=== PATIENT | female | born 1950 | race Caucasian/White ===

== ENCOUNTER → 2017-08-22 | Outpatient (CLI) | payer MEDICARE, BC ==
--- NOTE | 2017-08-26 10:35 | MM ---
Reason for exam: screening (asymptomatic). Last mammogram was performed 1 year and 7 months ago. History: Patient is postmenopausal and is nulliparous. Took estrogen for 31 years beginning at age 26. Physical Findings: A clinical breast exam by your physician is recommended on an annual basis and results should be correlated with mammographic findings. MG 3D Screening Mammo W/Cad Bilateral CC and MLO view(s) were taken. Prior study comparison: January 27, 2016, bilateral MG 3d screening mammo w/cad. January 24, 2015, bilateral MG screening mammo w CAD. The breast tissue is heterogeneously dense. This may lower the sensitivity of mammography. Benign calcifications. There is no discrete abnormality. No significant changes when compared with prior studies. ASSESSMENT: Benign, BI-RAD 2 RECOMMENDATION: Routine screening mammogram of both breasts in 1 year.
== END ==
LOC: RADMAMWWP 11:26
PROVIDERS: ATTEND Family Medicine
DX: Z12.31 Encounter for screening mammogram for malignant neoplasm of breast (principal)
CPT/HCPCS: 77063; G0202

== ENCOUNTER → 2017-08-22 | Outpatient (CLI) | payer MEDICARE, BC ==
[2017-08-22 12:48] LABS: Calcium 9.3 mg/dL (8.4-10.2); Potassium 3.1 mmol/L (3.5-5.1)
== END | disposition home or self-care (01) ==
LOC: LABWHC1 11:54
PROVIDERS: ATTEND Nurse Practitioner Family
DX: N18.3 Chronic kidney disease, stage 3 (moderate) (principal)
CPT/HCPCS: 36415; 80048

== ENCOUNTER → 2017-09-05 | Outpatient (CLI) | payer MEDICARE, BC | END | disposition home or self-care (01) | LOC: LABWHC1 11:13 | PROVIDERS: ATTEND Internal Medicine Endocrinology, Diabetes & Metabolism | DX: E03.8 Other specified hypothyroidism (principal); E55.9 Vitamin D deficiency, unspecified; N18.3 Chronic kidney disease, stage 3 (moderate); D63.1 Anemia in chronic kidney disease; R80.9 Proteinuria, unspecified; M10.9 Gout, unspecified | CPT/HCPCS: 36415; 84443 ==

== ENCOUNTER → 2017-12-30 | Outpatient (CLI) | payer MEDICARE, BC ==
[2017-12-30 12:32] LABS: Phosphorus 3.7 mg/dL (2.5-4.5); Potassium 4.1 mmol/L (3.5-5.1); Uric Acid 6.7 mg/dL (3.7-7.4)
[2017-12-30 12:34] LABS: Appearance,Urine Clear (Clear); Bilirubin,Urine Negative (Negative); Blood,Urine Negative (Negative); Color,Urine Yellow; Glucose,Urine (UA) Negative (Negative); Ketones,Urine Negative (Negative); Leukocyte Esterase,Urine Negative (Negative); Nitrite,Urine Negative (Negative); PH, Urine 6.5 (5.0-8.0); Protein,Urine Negative (Negative); Specific Gravity,Urine 1.009 (1.001-1.035); Urobilinogen,Urine <2.0 mg/dL (<2.0)
[2017-12-30 13:07] LABS: Basophils # (A) 0.1 k/uL (0-0.2); Basophils % (A) 1 %; Eosinophils # (A) 0.2 k/uL (0-0.7); Eosinophils % (A) 2 %; HCT 41.3 % (34.0-46.0); HGB 13.1 gm/dL (11.4-16.0); Lymphocytes # (A) 0.9 k/uL (1.0-4.8); Lymphocytes % (A) 14 %; MCH 29.7 pg (25.0-35.0); MCHC 31.7 g/dL (31.0-37.0); MCV 93.9 fL (80.0-100.0); Mean Platelet Volume 6.9; Monocytes # (A) 0.5 k/uL (0-1.0); Monocytes % (A) 7 %; Neutrophils % (A) 75 %; Platelet Count 353 k/uL (150-450); RDW 12.8 % (11.5-15.5); WBC 6.7 k/uL (3.8-10.6)
[2017-12-30 19:04] LABS: Iron Saturation 15.76 (12.00-45.00)
[2017-12-30 19:12] LABS: Vitamin D 25 Hydroxy 23.2 ng/mL (30.0-100.0)
[2017-12-30 21:31] LABS: Parathyroid Hormone Intact 84.8 pg/mL (14.0-72.0)
== END | disposition home or self-care (01) ==
LOC: LABWHC1 11:35
PROVIDERS: ATTEND Nurse Practitioner Family
DX: D64.9 Anemia, unspecified (principal); E55.9 Vitamin D deficiency, unspecified; E21.3 Hyperparathyroidism, unspecified; M10.9 Gout, unspecified; N18.3 Chronic kidney disease, stage 3 (moderate); R80.9 Proteinuria, unspecified
CPT/HCPCS: 36415; 80048; 81003; 82306; 82728; 83540; 83550; 83735; 83970; 84100; 84550; 85025

== ENCOUNTER → 2018-10-13 | Outpatient (CLI) | payer MEDICARE, BC ==
[2018-10-13 11:09] LABS: INR 2.7 (<1.2); Prothrombin Time 24.1 sec (9.0-12.0)
== END | disposition home or self-care (01) ==
LOC: LABWHC1 10:23
PROVIDERS: ATTEND Family Medicine
DX: I82.409 Acute embolism and thrombosis of unspecified deep veins of unspecified lower extremity (principal)
CPT/HCPCS: 36415; 85610

== ENCOUNTER → 2018-11-12 | Outpatient (CLI) | payer MEDICARE, BC ==
--- NOTE | 2018-11-14 09:33 | MM ---
Reason for exam: screening (asymptomatic). Last mammogram was performed 1 year and 3 months ago. History: Patient is postmenopausal and is nulliparous. Took estrogen for 31 years beginning at age 26. Physical Findings: A clinical breast exam by your physician is recommended on an annual basis and results should be correlated with mammographic findings. MG 3D Screening Mammo W/Cad Bilateral CC and MLO view(s) were taken. Prior study comparison: August 22, 2017, bilateral MG 3d screening mammo w/cad. January 27, 2016, bilateral MG 3d screening mammo w/cad. There are scattered fibroglandular densities. No significant changes when compared with prior studies. ASSESSMENT: Negative, BI-RAD 1 RECOMMENDATION: Routine screening mammogram of both breasts in 1 year.
== END | disposition home or self-care (01) ==
LOC: RADMAMWWP 11:00
PROVIDERS: ATTEND Family Medicine
DX: Z12.31 Encounter for screening mammogram for malignant neoplasm of breast (principal)
CPT/HCPCS: 77063; 77067

== ENCOUNTER → 2018-12-10 | Outpatient (CLI) | payer MEDICARE, BC ==
[2018-12-10 18:15] LABS: Anion Gap 10.4 mmol/L (4.00-12.00); Calcium 9.3 mg/dL (8.7-10.3); Carbon Dioxide 29.6 mmol/L (21.6-31.8); Potassium 3.4 mmol/L (3.5-5.5)
== END | disposition home or self-care (01) ==
LOC: LABWHC1 13:03
PROVIDERS: ATTEND Internal Medicine Nephrology
DX: I82.409 Acute embolism and thrombosis of unspecified deep veins of unspecified lower extremity (principal); E87.1 Hypo-osmolality and hyponatremia
CPT/HCPCS: 36415; 80048

== ENCOUNTER → 2018-12-10 | Outpatient (CLI) | payer MEDICARE, BC ==
--- NOTE | 2018-12-10 14:15 | MR ---
MR right hip HISTORY: Idiopathic aseptic necrosis Multiplanar multisequence imaging through the pelvis, small [id number] images through the right hi p Correlation to prior MR hips dated 11/08/2015 There is been interval left hip arthroplasty, susceptibility artifact is noted due to patient's left hip prosthesis. Postop changes are noted to the lumbar spine as on prior exam, there is a spinal curv ature. Right hip show similar findings to prior exam, hypertrophic changes present with joint space l oss, grade 3 to grade IV chondromalacia, subchondral signal abnormalities. There has been interval pr ogression in the probable reactive marrow signal change in the right ilium and acetabular roof with a ssociated geode compared to prior. Some serpiginous low signal in the femoral head subchondral locati on is similar. No evident femoral head collapse. There is a small hip joint effusion on the right. Fluid signal again noted at the origins of the hamstring musculature compatible with are partial tear s or tendinosis. Mild fluid signal at the greater trochanter, possible partial tear gluteus medius te ndon insertional tear or tendinosis. Changes of probable fecal stasis again noted within the pelvis. Urinary bladder unremarkable as seen. No pelvic adenopathy. 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 Previous changes of avascular right femor al head again noted. Interval surgery as described. Additional findings above.
== END ==
LOC: RADMRIMAIN 11:30
PROVIDERS: ATTEND Orthopaedic Surgery Sports Medicine
DX: M16.11 Unilateral primary osteoarthritis, right hip (principal)

== ENCOUNTER → 2018-12-29 | Outpatient (CLI) | payer MEDICARE, BC ==
[2018-12-30 03:13] LABS: Anion Gap 9.2 mmol/L (4.00-12.00); Calcium 8.8 mg/dL (8.7-10.3); Carbon Dioxide 26.8 mmol/L (21.6-31.8); Potassium 3.4 mmol/L (3.5-5.5)
== END ==
LOC: LABWHC1 15:00
PROVIDERS: ATTEND Internal Medicine Nephrology
DX: N18.3 Chronic kidney disease, stage 3 (moderate) (principal)
CPT/HCPCS: 36415; 80048

== ENCOUNTER → 2019-03-23 | Outpatient (CLI) | payer MEDICARE, BC ==
[2019-03-23 16:35] LABS: Anion Gap 7.6 mmol/L (4.00-12.00); Calcium 8.7 mg/dL (8.7-10.3); Carbon Dioxide 23.4 mmol/L (21.6-31.8); Potassium 4.4 mmol/L (3.5-5.5)
== END ==
LOC: LABWHC1 10:14
PROVIDERS: ATTEND Nurse Practitioner Family
DX: N17.9 Acute kidney failure, unspecified (principal)
CPT/HCPCS: 36415; 80048

== ENCOUNTER → 2019-12-15 | Outpatient (CLI) | payer MEDICARE, BC ==
--- NOTE | 2019-12-16 10:59 | MM ---
Reason for exam: screening (asymptomatic). Last mammogram was performed 1 year and 1 month ago. History: Patient is postmenopausal and is nulliparous. Took estrogen for 31 years beginning at age 26. Physical Findings: A clinical breast exam by your physician is recommended on an annual basis and results should be correlated with mammographic findings. MG 3D Screening Mammo W/Cad Bilateral CC and MLO view(s) were taken. Prior study comparison: November 12, 2018, bilateral MG 3d screening mammo w/cad. August 22, 2017, bilateral MG 3d screening mammo w/cad. The breast tissue is heterogeneously dense. This may lower the sensitivity of mammography. Benign appearing bilateral calcifications. No suspicious abnormality. No significant changes when compared with prior studies. ASSESSMENT: Benign, BI-RAD 2 RECOMMENDATION: Routine screening mammogram of both breasts in 1 year.
== END | disposition home or self-care (01) ==
LOC: RADMAMWWP 09:43
PROVIDERS: ATTEND Family Medicine
DX: Z12.31 Encounter for screening mammogram for malignant neoplasm of breast (principal)
CPT/HCPCS: 77063; 77067

== ENCOUNTER → 2020-01-21 | Outpatient (CLI) | payer MEDICARE, BC | END | disposition home or self-care (01) | LOC: LABWHC1 11:19 | PROVIDERS: ATTEND Internal Medicine Endocrinology, Diabetes & Metabolism | DX: E03.8 Other specified hypothyroidism (principal) | CPT/HCPCS: 36415; 84443 ==

== ENCOUNTER → 2020-04-20 | Outpatient (CLI) | payer MEDICARE, BC ==
[2020-04-20 13:06] LABS: Appearance,Urine Clear (Clear); Bilirubin,Urine Negative (Negative); Blood,Urine Negative (Negative); Color,Urine Yellow; Glucose,Urine (UA) Negative (Negative); Ketones,Urine Negative (Negative); Leukocyte Esterase,Urine Negative (Negative); Nitrite,Urine Negative (Negative); Protein,Urine Trace (Negative); Specific Gravity,Urine 1.014 (1.001-1.035); Urobilinogen,Urine <2.0 mg/dL (<2.0)
[2020-04-20 13:07] LABS: HCT 37.2 % (34.0-46.0); HGB 12.1 gm/dL (11.4-16.0); MCH 30.1 pg (25.0-35.0); MCHC 32.4 g/dL (31.0-37.0); MCV 92.9 fL (80.0-100.0); Mean Platelet Volume 7.3; Platelet Count 286 k/uL (150-450); WBC 6.7 k/uL (3.8-10.6)
[2020-04-20 13:23] LABS: Protein/Creatinine Ratio,Urine 0.345
[2020-04-20 19:33] LABS: % Iron Saturation 16.45 (12.00-45.00); African American GFR (CKD) 59.3 (60.0-200.0); Anion Gap 10.2 mmol/L (4.00-12.00); BUN/Creat Ratio 19.09 Ratio (12.00-20.00); Calcium 9.3 mg/dL (8.7-10.3); Carbon Dioxide 24.8 mmol/L (21.6-31.8); Magnesium 2.1 mg/dL (1.5-2.4); Non-African American GFR(CKD) 51.2 (60.0-200.0); Potassium 2.8 mmol/L (3.5-5.5)
[2020-04-20 19:42] LABS: Ferritin 36.1 ng/mL (10.0-291.0)
== END | disposition home or self-care (01) ==
LOC: LABWHC1 11:57
PROVIDERS: ATTEND Internal Medicine Nephrology
DX: N18.3 Chronic kidney disease, stage 3 (moderate) (principal); N39.0 Urinary tract infection, site not specified; D63.1 Anemia in chronic kidney disease; R80.9 Proteinuria, unspecified; N25.81 Secondary hyperparathyroidism of renal origin; E55.9 Vitamin D deficiency, unspecified
CPT/HCPCS: 36415; 80048; 81003; 82306; 82570; 82728; 83540; 83550; 83735; 83970; 84100; 84156; 84550; 85027

== ENCOUNTER → 2020-04-25 | Outpatient (CLI) | payer MEDICARE, BC ==
[2020-04-25 21:32] LABS: African American GFR (CKD) 66.6 (60.0-200.0); Anion Gap 8.1 mmol/L (4.00-12.00); Calcium 8.9 mg/dL (8.7-10.3); Carbon Dioxide 24.9 mmol/L (21.6-31.8); Non-African American GFR(CKD) 57.4 (60.0-200.0)
== END | disposition home or self-care (01) ==
LOC: LABWHC1 13:44
PROVIDERS: ATTEND Nurse Practitioner Family
DX: N18.3 Chronic kidney disease, stage 3 (moderate) (principal)
CPT/HCPCS: 36415; 80048

== ENCOUNTER 2020-04-29 21:14 | Emergency (ER) | payer MEDICARE, BC ==
[2020-04-29 21:24] VITALS: RESP 18; TEMP 98.5
[2020-04-29] MEDS ORDERED: HYDROmorphone 0.5 MG/0.5 ML SYRINGE IVP STA (22:42)
[2020-04-29 22:51] LABS: Appearance,Urine Clear (Clear); Bilirubin,Urine Negative (Negative); Blood,Urine Negative (Negative); Color,Urine Colorless; Glucose,Urine (UA) Negative (Negative); Ketones,Urine Negative (Negative); Leukocyte Esterase,Urine Negative (Negative); Nitrite,Urine Negative (Negative); Protein,Urine Negative (Negative); Specific Gravity,Urine 1.004 (1.001-1.035); Urobilinogen,Urine <2.0 mg/dL (<2.0)
[2020-04-29 22:53] LABS: Basophils % (A) 1 %; Eosinophils # (A) 0.2 k/uL (0-0.7); Eosinophils % (A) 3 %; HCT 37.7 % (34.0-46.0); HGB 11.8 gm/dL (11.4-16.0); Lymphocytes # (A) 0.8 k/uL (1.0-4.8); Lymphocytes % (A) 12 %; MCH 30.1 pg (25.0-35.0); MCHC 31.3 g/dL (31.0-37.0); Mean Platelet Volume 7.4; Monocytes # (A) 0.3 k/uL (0-1.0); Monocytes % (A) 5 %; Neutrophils # (A) 4.8 k/uL (1.3-7.7); Neutrophils % (A) 77 %; Platelet Count 292 k/uL (150-450); RBC 3.93 m/uL (3.80-5.40); RDW 13.4 % (11.5-15.5); WBC 6.2 k/uL (3.8-10.6)
[2020-04-29 23:09] LABS: Albumin 3.6 g/dL (3.5-5.0); Calcium 9.2 mg/dL (8.4-10.2); Magnesium 2.3 mg/dL (1.6-2.3); Phosphorus 3.4 mg/dL (2.5-4.5); Potassium 5.5 mmol/L (3.5-5.1); Total Bilirubin 0.2 mg/dL (0.2-1.3); Total Protein 6.6 g/dL (6.3-8.2)
--- NOTE | 2020-04-29 23:29 | CT ---
EXAMINATION TYPE: CT brain antoineine wo con DATE OF EXAM: 04/29/2020 COMPARISON: 11/08/2015 HISTORY: headache Neck pain CT DLP: 1242.7 mGycm Automated exposure control for dose reduction was used. Ventricles and sulci appear normal. There is no mass effect nor midline shift. There is no sign of in tracranial hemorrhage. The calvarium is intact. There is no evidence of cerebral edema. There is multilevel anterior fusion surgery in the cervical spine from C4 to C7. There is disc space narrowing and spurring of the endplates. Facet joints are intact. There is a nondisplaced fracture of the lateral mass of the C2 vertebra on the right side. The odonto id process appears normal. C1 vertebra probably has a small chip fracture of the inferior articular f acet on the right side. IMPRESSION: Negative CT scan of the brain. No change. Fracture of the lateral mass of C2 vertebra on the right side without significant displacement. Age o f this fracture is not clear. This could be an acute fracture.
[2020-04-29 23:53] VITALS: BP 140/82; PULSE 69
[2020-04-30] MEDS ORDERED: HYDROmorphone 0.5 MG/0.5 ML SYRINGE IVP STA (00:34)
--- NOTE | 2020-04-30 00:54 | ED ---
General Adult HPI - General Chief complaint: Recheck/Abnormal Lab/Rx Stated complaint: Abnormal Labs Time Seen by Provider: 04/29/20 22:10 Source: patient, RN notes reviewed, old records reviewed Mode of arrival: wheelchair Limitations: no limitations - History of Present Illness Initial comments: 69-year-old female patient presents to ED for evaluation of headache, neck pain. Patient reports that for the last week or so she has had a headache as well as neck pain. Patient reports that she had a prior ankle fusion done 2003. Denies any recent falls or trauma. Patient also reports that she has chronic lower extremity pain for she has a pain pump. Patient reports that this has been slightly worse than normal. She states that she in the past that history with her sodium and her potassium. She believes that they may be low. She denies any chest pain or shortness of breath. Denies any other complaints. Systemic: Pt denies fatigue, fever/chills, rash. Pt denies weakness, night sweats, weight loss. Neuro: Pt denies visual disturbances, syncope or pre-syncope. HEENT: Pt denies ocular discharge or irritation, otalgia, rhinorrhea, pharyngitis or notable lymphadenopathy. Cardiopulmonary: Pt denies chest pain, SOB, heart palpitations, dyspnea on exertion. Abdominal/GI: Pt denies abdominal pain, n/v/d. : Pt denies dysuria, burning w/ urination, frequency/urgency. Denies new onset urinary or bowel incontinence. MSK: Pt denies myalgia, loss of strength or function in extremities. Neuro: Pt denies new onset weakness, paresthesias. - Related Data Allergies Allergy/AdvReac Type Severity Reaction Status Date / Time cephalexin [From Keflex] Allergy Rash/Hives Verified 04/29/20 21:27 Iodine and Iodide Containing Allergy Rapid Verified 04/29/20 21:27 Produc Heart Rate levofloxacin [From Levaquin] Allergy Rash/Hives Verified 04/29/20 21:27 meperidine [From Demerol] Allergy Vomiting Verified 04/29/20 21:24 morphine Allergy Nausea & Verified 04/29/20 21:27 Vomiting neomycin Allergy Rash/Hives Verified 04/29/20 21:27 Penicillins Allergy Rash/Hives Verified 04/29/20 21:27 pentazocine [From Talwin] Allergy Rash/Hives Verified 04/29/20 21:25 prochlorperazine Allergy Rapid Verified 04/29/20 21:25 [From Compazine] Heart Rate Sulfa (Sulfonamide Allergy Rash/Hives Verified 04/29/20 21:27 Antibiotics) vancomycin Allergy Rash/Hives Verified 04/29/20 21:27 Review of Systems ROS Statement: Those systems with pertinent positive or pertinent negative responses have been documented in the HPI. ROS Other: All systems not noted in ROS Statement are negative. Past Medical History Past Medical History: COPD, Deep Vein Thrombosis (DVT), Thyroid Disorder Additional Past Medical History / Comment(s): angina, kidney disorder History of Any Multi-Drug Resistant Organisms: None Reported Past Surgical History: Appendectomy, Cholecystectomy, Orthopedic Surgery Additional Past Surgical History / Comment(s): RSD in legs, pain pump, bowel obstruction, cervical fusion c5-6 Smoking Status: Former smoker Past Alcohol Use History: None Reported Past Drug Use History: None Reported General Exam - General Exam Comments Initial Comments: Constitutional: NAD, AOX3, Pt has pleasant affect. HEENT: NC/AT, trachea midline, neck supple. External ears appear normal, without discharge. Mucous membranes moist. Eyes PERRLA, EOM intact. There is no scleral icterus. No pallor noted. Cardiopulmonary: RRR, no murmurs, rubs or gallops, no JVD noted. Lungs CTAB in anterior and posterior lindsay. No peripheral edema. Abdominal exam: Abdomen soft and non-distended. Abdomen non-tender to palpation in all 4 quadrants. Bowel sounds active in LLQ. No hepatosplenomegaly. No ecchymosis Neuro: CN II-XII intact. No raccon eyes, no crowder sign. NIH 0. Cervical spine discomfort. MSK: Full active ROM in upper and lower extremities, 5/5 stregnth. Limitations: no limitations Course Vital Signs 04/29/20 04/29/20 04/29/20 21:16 22:51 23:48 Temperature 98.5 F Pulse Rate 78 67 69 Respiratory 18 18 18 Rate Blood Pressure 124/74 116/66 140/82 O2 Sat by Pulse 97 97 96 Oximetry Medical Decision Making - Medical Decision Making 69-year-old female patient presents to ED for evaluation of headache, neck pain. Patient reports that for the last week or so she has had a headache as well as neck pain. Patient reports that she had a prior ankle fusion done 2003. Denies any recent falls or trauma. Patient also reports that she has chronic lower extremity pain for she has a pain pump. Patient reports that this has been slightly worse than normal. She states that she in the past that history with her sodium and her potassium. She believes that they may be low. She denies any chest pain or shortness of breath. Denies any other complaints. Patient vital signs are stable, afebrile. Physical exam displayed intact neurologically exam. Cervical spine discomfort. CT brain and C-spine displayed negative CAT scan of the brain. Fracture of the lateral mass of C2 vertebrae in the right side without significant displacement. Laboratory investigations are obtained, mildly elevated potassium of 5.5. Troponin negative. UA negative. EKG nonischemic. Patient placed in a hard cervical collar and will be transferred to [facility]. Case discussed and pt seen by Dr. Guevara. - Lab Data Result diagrams: 04/29/20 22:25 04/29/20 22:25 Lab Results 04/29/20 04/29/20 04/29/20 Range/Units 22:25 22:25 22:25 WBC 6.2 (3.8-10.6) k/uL RBC 3.93 (3.80-5.40) m/uL Hgb 11.8 (11.4-16.0) gm/dL Hct 37.7 (34.0-46.0) % MCV 96.0 (80.0-100.0) fL MCH 30.1 (25.0-35.0) pg MCHC 31.3 (31.0-37.0) g/dL RDW 13.4 (11.5-15.5) % Plt Count 292 (150-450) k/uL Neutrophils % 77 % Lymphocytes % 12 % Monocytes % 5 % Eosinophils % 3 % Basophils % 1 % Neutrophils # 4.8 (1.3-7.7) k/uL Lymphocytes # 0.8 L (1.0-4.8) k/uL Monocytes # 0.3 (0-1.0) k/uL Eosinophils # 0.2 (0-0.7) k/uL Basophils # 0.0 (0-0.2) k/uL Sodium 136 L (137-145) mmol/L Potassium 5.5 H (3.5-5.1) mmol/L Chloride 106 (98-107) mmol/L Carbon Dioxide 25 (22-30) mmol/L Anion Gap 5 mmol/L BUN 17 (7-17) mg/dL Creatinine 0.96 (0.52-1.04) mg/dL Est GFR (CKD-EPI)AfAm 70 (>60 ml/min/1.73 sqM) Est GFR (CKD-EPI)NonAf 61 (>60 ml/min/1.73 sqM) Glucose 78 (74-99) mg/dL Calcium 9.2 (8.4-10.2) mg/dL Phosphorus 3.4 (2.5-4.5) mg/dL Magnesium 2.3 (1.6-2.3) mg/dL Total Bilirubin 0.2 (0.2-1.3) mg/dL AST 26 (14-36) U/L ALT 26 (4-34) U/L Alkaline Phosphatase 68 (38-126) U/L Troponin I (0.000-0.034) ng/mL Total Protein 6.6 (6.3-8.2) g/dL Albumin 3.6 (3.5-5.0) g/dL Urine Color Colorless Urine Appearance Clear (Clear) Urine pH 6.0 (5.0-8.0) Ur Specific [place] 1.004 (1.001-1.035) Urine Protein Negative (Negative) Urine Glucose (UA) Negative (Negative) Urine Ketones Negative (Negative) Urine Blood Negative (Negative) Urine Nitrite Negative (Negative) Urine Bilirubin Negative (Negative) Urine Urobilinogen <2.0 (<2.0) mg/dL Ur Leukocyte Esterase Negative (Negative) 04/29/20 Range/Units 22:25 WBC (3.8-10.6) k/uL RBC (3.80-5.40) m/uL Hgb (11.4-16.0) gm/dL Hct (34.0-46.0) % MCV (80.0-100.0) fL MCH (25.0-35.0) pg MCHC (31.0-37.0) g/dL RDW (11.5-15.5) % Plt Count (150-450) k/uL Neutrophils % % Lymphocytes % % Monocytes % % Eosinophils % % Basophils % % Neutrophils # (1.3-7.7) k/uL Lymphocytes # (1.0-4.8) k/uL Monocytes # (0-1.0) k/uL Eosinophils # (0-0.7) k/uL Basophils # (0-0.2) k/uL Sodium (137-145) mmol/L Potassium (3.5-5.1) mmol/L Chloride (98-107) mmol/L Carbon Dioxide (22-30) mmol/L Anion Gap mmol/L BUN (7-17) mg/dL Creatinine (0.52-1.04) mg/dL Est GFR (CKD-EPI)AfAm (>60 ml/min/1.73 sqM) Est GFR (CKD-EPI)NonAf (>60 ml/min/1.73 sqM) Glucose (74-99) mg/dL Calcium (8.4-10.2) mg/dL Phosphorus (2.5-4.5) mg/dL Magnesium (1.6-2.3) mg/dL Total Bilirubin (0.2-1.3) mg/dL AST (14-36) U/L ALT (4-34) U/L Alkaline Phosphatase (38-126) U/L Troponin I <0.012 (0.000-0.034) ng/mL Total Protein (6.3-8.2) g/dL Albumin (3.5-5.0) g/dL Urine Color Urine Appearance (Clear) Urine pH (5.0-8.0) Ur Specific [place] (1.001-1.035) Urine Protein (Negative) Urine Glucose (UA) (Negative) Urine Ketones (Negative) Urine Blood (Negative) Urine Nitrite (Negative) Urine Bilirubin (Negative) Urine Urobilinogen (<2.0) mg/dL Ur Leukocyte Esterase (Negative) - EKG Data -: EKG Interpreted by Me (and Dr. Guevara ) EKG Comments: Ventricular 58, through until 118, QRS 72, QT/QTC 378/71. Sinus bradycardia, low voltage QRS, Borderling EKG Disposition Clinical Impression: C2 cervical fracture Disposition: OTHER INSTITUTION NOT DEFINED Condition: Serious Is patient prescribed a controlled substance at d/c from ED?: No Referrals: Lynnette Mayer MD [Primary Care Provider] - 1-2 days - Out of Hospital Transfer - Req. Specs Out of Hospital Transfer - Requested Specifics: Other Emergency Center ([facility])
== END 2020-04-30 00:43 | disposition other institution (70) ==
LOC: EC 21:14
DX: S12.100A Unspecified displaced fracture of second cervical vertebra, initial encounter for closed fracture (principal); G89.29 Other chronic pain; M79.606 Pain in leg, unspecified; E87.5 Hyperkalemia; Z88.1 Allergy status to other antibiotic agents; Z88.0 Allergy status to penicillin; Z88.2 Allergy status to sulfonamides; Z88.5 Allergy status to narcotic agent; Z88.8 Allergy status to other drugs, medicaments and biological substances; Z91.048 Other nonmedicinal substance allergy status; Z87.891 Personal history of nicotine dependence; Z86.718 Personal history of other venous thrombosis and embolism; Z98.1 Arthrodesis status
CPT/HCPCS: 36415; 93005; 80053; 83735; 84100; 84484; 85025; 81003; 72125; 70450; 99285; 96374; 96376; J1170 ×2

== ENCOUNTER → 2020-05-04 | Outpatient (CLI) | payer MEDICARE, BC ==
--- NOTE | 2020-05-05 07:08 | MR ---
EXAMINATION TYPE: MR brain wo con DATE OF EXAM: 05/04/2020 COMPARISON: CT brain April 29, 2020. HISTORY: Neck pain, numbness rt side, ALVAREZ, passing out TECHNIQUE: Multiplanar, multisequence imaging of the brain and brainstem is performed without IV cont rast. FINDINGS: Diffusion weighted images demonstrate no evidence of a recent infarct or other diffusion abnormality. There is no worrisome extra-axial fluid collection. There is mild ventricular and sulcal prominence. There are scattered foci of T2 hyperintensity seen throughout the superficial deep and periventricula r white matter. T2 Star weighted images show no suspicious intraparenchymal blood product. Midline structures demonstrate normal morphology. Low T1 signal involving the and C2 vertebra corresp onds to diffuse sclerosis presumed on the basis of degenerative change. Possible old healed fracture injury noted on corresponding CT with asymmetric C1-C2 right-sided narrowing and sclerosis on coronal imaging. Normal vascular flow voids are present. Mild mucosal thickening involving the ethmoid sinu ses bilaterally. Globes are intact.. IMPRESSION: Mild diffuse cerebral atrophy and mild nonspecific white matter changes could be on the b asis of product of chronic small vessel ischemic change in patient of this age and/or altered vascula r mechanics related to product of migraine headaches.
--- NOTE | 2020-05-05 12:32 | MR ---
EXAMINATION TYPE: MR cervical spine wo/w con DATE OF EXAM: 05/05/2020 COMPARISON: Plain film 04/29/2020 HISTORY: Neck pain, numbness rt side, ALVAREZ, passing out, hx fusion 2013 TECHNIQUE: Multiplanar, multisequence images of the cervical spine were acquired utilizing 7 mL intravenous Gada vist gadolinium contrast. Diffusion weighted imaging was performed. C2-C3: No evidence for degenerative disc disease. No disc bulge/herniation or protrusion. No Canal stenosis. Foramina are patent bilaterally. C3-C4: Posterior extension of endplate disc complex causes anterior mass effect on the thecal sac and may contact the anterior cervical cord. Uncovertebral joint hypertrophy and facet arthropathy result s in some left-sided foraminal encroachment. C4-C5: There is foraminal encroachment present bilaterally due to uncovertebral joint hypertrophy and facet arthropathy. Right-sided laminectomy is present. No evident disc herniation. C5-C6: No evident disc herniation. There is some mild left-sided foraminal encroachment, uncovertebra l joint hypertrophy C6-C7: Bilateral foraminal encroachment is present. There is some minimal posterior broad-based disc bulge. C7-T1: There is some encroachment. Minimal posterior disc bulge causes mild anterior mass effect on t he thecal sac. Patient with known lateral mass fracture of C2 on the right is not included entirely on the current e xam on the axial images. Cervical vertebral bodies show preserved height and stable alignment. Patien t shows posterior fusion changes at C4-C5, C5-6, C6-7. Susceptibility artifact is present due to corby ent's hardware. There is multilevel facet arthropathy. Cervical cord signal is normal. There is no si gnificant central canal stenosis. No abnormal enhancement following contrast administration. IMPRESSION: Known C2 fracture. Postop changes. Degenerative disc disease. Multilevel foraminal encroachment.
== END | disposition home or self-care (01) ==
LOC: RADMRIMAIN 16:01
PROVIDERS: ATTEND Family Medicine
DX: G31.9 Degenerative disease of nervous system, unspecified (principal); R90.89 Other abnormal findings on diagnostic imaging of central nervous system; S12.100A Unspecified displaced fracture of second cervical vertebra, initial encounter for closed fracture; M50.30 Other cervical disc degeneration, unspecified cervical region; Z98.890 Other specified postprocedural states
CPT/HCPCS: 70551; 72156; A9585

== ENCOUNTER → 2021-03-17 | Outpatient (CLI) | payer MEDICARE, BC ==
--- NOTE | 2021-03-20 11:20 | MM ---
Reason for exam: screening (asymptomatic). Last mammogram was performed 1 year and 3 months ago. History: Patient is postmenopausal and is nulliparous. Took estrogen for 31 years beginning at age 26. Physical Findings: A clinical breast exam by your physician is recommended on an annual basis and results should be correlated with mammographic findings. MG 3D Screening Mammo W/Cad Bilateral CC and MLO view(s) were taken. Prior study comparison: December 15, 2019, bilateral MG 3d screening mammo w/cad. November 12, 2018, bilateral MG 3d screening mammo w/cad. The breast tissue is heterogeneously dense. This may lower the sensitivity of mammography. There are benign appearing round linear calcifications bilaterally. There is no discrete abnormality. ASSESSMENT: Benign, BI-RAD 2 RECOMMENDATION: Routine screening mammogram of both breasts in 1 year.
== END | disposition home or self-care (01) ==
LOC: RADMAMWWP 11:05
PROVIDERS: ATTEND Family Medicine
DX: Z12.31 Encounter for screening mammogram for malignant neoplasm of breast (principal); Z78.0 Asymptomatic menopausal state
CPT/HCPCS: 77063; 77067

== ENCOUNTER → 2022-03-19 | Outpatient (CLI) | payer MEDICARE, BC ==
[2022-03-19 09:19] VITALS: BP 105/57; PULSE 60; RESP 18
--- NOTE | 2022-03-19 09:30 | P.CON ---
Consult Note - . Consult date: 03/19/22 Assessment/Plan:: HISTORY OF PRESENT ILLNESS: 71 -year-old female as a referral from Dr. Barahona presents today with bilateral lower extremity pain secondary to lumbar DDD, spondylosis and facet arthropathy for evaluation. Patient states her pain is 4 out of 10 in intensity in her lumbar spine, stabbing, sharp, burning which escalates as high as 9 out of 10 in intensity with inactivity. Patient also has a Medtronic pain pump implantation with PTM for pain relief that is refilled with Marcaine & Dilaudid every 2 months. She is scheduled to have it filled this week, but her physician is leaving the state and she is wondering if this department will refill her pain pump from that point onwards. Pain is relieved with topicals, sympathetic nerve block injections that last 3-5 months, L today ice and heat, physical therapy in the past, daily home exercise regimen, use of a walker for ambulation and rest. Past Medical History: COPD, Deep Vein Thrombosis (DVT), Thyroid Disorder, RSD in LEs. Past Surgical History: Appendectomy, Cholecystectomy, C5-C6 Fusion, Lumbar fusion Family History: Non contributory Social History: Former tobacco user. No ETOH abuse. No illicit drug use. All: See list Meds: See list REVIEW OF ORGAN SYSTEMS: CONSTITUTIONAL: No fevers or chills. No recent weight loss. HEENT: No visual acuity loss, eye pain, difficulties with hearing. No nosebleeds. No difficulty swallowing. RESPIRATORY: Denies any troubles with breathing or dyspnea on exertion. CARDIOVASCULAR: Denies any chest pain, palpitations, or recent heart attacks. GASTROINTESTINAL: Denies fatty food intolerance. Has change in bowel habits and gas bloat. GENITOURINARY: Denies any blood in urine. Has increased urinary frequency. NEUROLOGICAL: + numbness and tingling along the distal extremities. No seizure disorders or headaches. MUSCULOSKELETAL: + back pain SKIN: No skin cancer. No rash. PSYCHIATRIC: Denies current depression or suicidal thoughts. ENDOCRINE: Denies current thyroid disorders. Denies any blood sugar glucose intolerance. HEME/LYMPHATIC: Denies any lumps and bumps around the neck. History of deep venous thrombosis. ALLERGY/IMMUNOLOGY: No immunoglobulin therapy. No immune deficiencies. BREAST: Denies current breast lumps, pain or nipple discharge. Physical Examinations : Constitutional : Cooperative , not in acute distress . HEENT: Neck supple. No Lymphadenopathy. Normal thyroid size . Eyes no ptosis , no icterus, no photophobia . Hearing intact. Normal oropharynx. No Thrush. Respiratory : Chest clear to auscultations bilaterally. No wheezing. No rhonchi. Cardiovascular : Regular rate and rhythm , S1 / S2. No S3 . No S4. Gastrointestinal : Abdomen soft. No tenderness. Bowel sounds x 4. No organomegaly . Genitourinary : Deferred. Neurologic : Cranial nerve II to XII intact. No focal neurological deficits. Psychiatric : alert & oriented x 3. Matching mood & appropriate affect. Judgment & insight intact. Lymphatic No Lymphadenopathy. Musculoskeletal : Cervical Spine Motor strength in the deltoid and biceps: Normal right side. Normal Left side Motor strength biceps and the wrist extensors: Normal right side . Normal left side Motor strength in the triceps muscle: Normal right side. Normal left side Deep tendon reflexes: Normal at the b iceps. Normal at Brachioradialis. Normal at triceps Cervical facet loading test: positive bilaterally Spurling test: positive bilaterally Neck distraction test: positive bilaterally Yuli sign: positive bilaterally Lumbar spine Motor strength lower extremities ,thigh and legs 5/5 Right side , 5/5 Left side Deep tendon reflexes : Normal Knee Jerk. Normal Ankle Jerk Vertebral body tenderness over L4 Lumbar facet Loading Test: positive Right / positive Left Range of motion of the lumbar spine Flexion 30 degrees, extension 10 degrees Straight Leg Raise test: Left/ Right positive at 30 degrees Aj test: positive right / positive left. Severe tenderness over the Sacroiliac joint on the Right / Left sides Gaenslen test: positive bilaterally Seated flexion test: positive bilaterally. Imaging: Awaiting imaging results from Dr Barahona's office Assessment/ Plan : Will follow up with patient on refilling Medtronic pain pump on a bi monthly basis. We need imaging results and will contact Dr Barahona for them. Risks, benefits of procedure discussed and patient verbalized understanding. All questions answered. I have spent greater than 50 minutes on patient care today. Dr Hdz was available by phone for the evaluation of this patient. The time was used to review the medical records including relevant urine studies and Prescription history (MAPs), review of the available imaging, evaluation and examination of the patient, coordination of care with the medical staff and if applicable referring physicians, as well as creation of the medical record PQRS Measure Charge Sheet Mode of Arrival: Ambulatory, Walker - Pain Location Bilateral Leg Non-Pharmacological Interventions: Heat, Home Exercise, Ice, Physical Therapy, Position/Reposition, Stretching Pharmacological Interventions: Block, Pain Pump, Topical Medication PQRS Narrative: Smoking Status Former smoker Blood Pressure 105/57 Pain Intensity [Bilateral Leg] 4 Scale Used Numeric (1 - 10) Hx Alcohol Use (MH) No
== END ==
LOC: PNWHC3 08:50
PROVIDERS: ATTEND Specialist
DX: M51.36 Other intervertebral disc degeneration, lumbar region (principal); M47.816 Spondylosis without myelopathy or radiculopathy, lumbar region; M79.605 Pain in left leg; M79.604 Pain in right leg; J44.9 Chronic obstructive pulmonary disease, unspecified; Z86.718 Personal history of other venous thrombosis and embolism; Z87.891 Personal history of nicotine dependence; Z88.1 Allergy status to other antibiotic agents; Z91.041 Radiographic dye allergy status; Z88.5 Allergy status to narcotic agent; Z88.2 Allergy status to sulfonamides; Z88.0 Allergy status to penicillin
CPT/HCPCS: 99211

== ENCOUNTER → 2022-05-04 | Outpatient (CLI) | payer MEDICARE, BC ==
[2022-05-04 20:30] LABS: ALT 25 U/L (8-44); AST 19 U/L (13-35); African American GFR (CKD) 47.8 (60.0-200.0); Albumin 4.2 g/dL (3.8-4.9); Alkaline Phosphatase 64 U/L (41-126); BUN/Creat Ratio 19.38 Ratio (12.00-20.00); Blood Urea Nitrogen 25.2 mg/dL (9.0-27.0); Calcium 9.6 mg/dL (8.7-10.3); Carbon Dioxide 35.2 mmol/L (20.0-27.5); Chloride 94 mmol/L (96-109); Globulin 2.8 g/dL (1.6-3.3); Glucose 62 mg/dL (70-110); Non-African American GFR(CKD) 41.2 (60.0-200.0); Potassium 3.8 mmol/L (3.5-5.5); Sodium 138 mmol/L (135-145); Total Bilirubin <0.15 mg/dL (0.30-1.20)
--- NOTE | 2022-05-07 11:33 | MM ---
Reason for Exam: Screening (asymptomatic). Last mammogram was performed 1 year(s) and 2 month(s) ago. Patient History: Menarche at age 11. Patient has no children. Left ovary removed at age 25. Right ovary removed at age 25. Hysterectomy at age 25. Postmenopausal. Estrogen, starting at age 26 for 31 years. Risk Values: Ruth 5 year model risk: 2.1%. NCI Lifetime model risk: 5.9%. Prior Study Comparison: 11/12/2018 Bilateral Screening Mammogram, [facility]. 12/15/2019 Bilateral Screening Mammogram, [facility]. 03/17/2021 Bilateral Screening Mammogram, [facility]. Tissue Density: The breast tissue is heterogeneously dense. This may lower the sensitivity of mammography. Findings: Analyzed By CAD. There is no suspicious group of microcalcifications or new suspicious mass in either breast. Stable Benign calcifications seen. Overall Assessment: Benign, BI-RAD 2 Management: Screening Mammogram of both breasts in 1 year. A clinical breast exam by your physician is recommended on an annual basis and results should be correlated with mammographic findings. Electronically signed and approved by: Mayur Higgins M.D. Radiologis
== END | disposition home or self-care (01) ==
LOC: RADMAMWWP 11:28
PROVIDERS: ATTEND Internal Medicine
DX: Z12.31 Encounter for screening mammogram for malignant neoplasm of breast (principal); R92.1 Mammographic calcification found on diagnostic imaging of breast; N18.31 Chronic kidney disease, stage 3a; Z78.0 Asymptomatic menopausal state
CPT/HCPCS: 77063; 77067; 80053

== ENCOUNTER → 2022-10-08 | Outpatient (CLI) | payer MEDICARE, BC ==
--- NOTE | 2022-10-09 08:37 | XR ---
EXAMINATION TYPE: XR chest 2V DATE OF EXAM: 10/08/2022 COMPARISON: 12/04/2021 HISTORY: 71-year-old female R05.9, cough and congestion, shortness of breath for TECHNIQUE: Frontal and lateral views FINDINGS: CT of hardware. Heart normal size. Hyperinflation. Interstitial density mid and lower lungs is increa sed. Patchy opacity left lower lung is increased. Some possible subtle nodular density left base and right midlung for which follow-up is recommended. No pleural effusion. IMPRESSION: 1. COPD with new interstitial infiltrates left greater than right lower lungs. Correlate for intersti tial or aspiration pneumonitis versus atypical pneumonias. Early conventional pneumonia also not excl uded. 2. Follow-up after treatment to exclude underlying pulmonary nodules at the right midlung and left ba se. If the densities persist, CT can be performed to further assess.
== END | disposition home or self-care (01) ==
LOC: RADXRMAIN 16:59
PROVIDERS: ATTEND Internal Medicine
DX: J44.9 Chronic obstructive pulmonary disease, unspecified (principal); R91.8 Other nonspecific abnormal finding of lung field; R05.9 Cough, unspecified; R06.02 Shortness of breath; R06.2 Wheezing
CPT/HCPCS: 71046

== ENCOUNTER → 2022-11-08 | Outpatient (CLI) | payer MEDICARE, BC ==
--- NOTE | 2022-11-08 11:38 | CT ---
EXAMINATION TYPE: CT chest wo con DATE OF EXAM: 11/08/2022 COMPARISON: Chest x-ray 10/08/2022 HISTORY: Lung nodule CT DLP: 251.6 mGycm. Automated Exposure Control for Dose Reduction was Utilized. TECHNIQUE: CT scan of the thorax is performed without IV contrast. FINDINGS: LUNGS: Emphysematous changes are seen in a centrilobular pattern. There is subsegmental consolidation in the right upper lobe, left upper lobe laterally, left lower lo be most typical of atelectasis or scarring. Resolving pneumonitis or pneumonia also in the differenti al diagnosis. There is a 3 mm nodule in the superior segment right lower lobe axial image 38. There is a subpleural 3 mm nodule superior segment left lower lobe axial image 32. MEDIASTINUM: Lack of IV contrast is noted to limit evaluation for mediastinal and especially hilar ad enopathy. There are no definitive greater than 1 cm hilar or mediastinal lymph nodes. No cardiomega ly or pericardial effusion is seen. Coronary artery calcification. OTHER: There is a hiatal hernia noted. Post cholecystectomy changes noted. 5 mm hyperdense left renal lesion most likely related to tiny hemorrhagic cyst. Incompletely evaluated by noncontrast technique . There is a curvature of the spine with multilevel severe degenerative disc disease. Surgical change near the cervical spine region. Appears to be an catheter within the spinal canal. IMPRESSION: 1. There are bilateral small areas of subsegmental consolidation favor atelectasis or scarring over r esolving pneumonia or pneumonitis. 2. There are multiple sub-5 mm pulmonary nodules too small to characterize and recommend a follow-up [address] scan of the chest. 3. COPD
== END | disposition home or self-care (01) ==
LOC: RADCTMAIN 10:54
PROVIDERS: ATTEND Internal Medicine Critical Care Medicine
DX: J44.9 Chronic obstructive pulmonary disease, unspecified (principal); R91.8 Other nonspecific abnormal finding of lung field
CPT/HCPCS: 71250

== ENCOUNTER 2023-02-12 09:51 | Day surgery (SDC) | payer MEDICARE, OTHER ==
[2023-02-07 10:42] VITALS: BMI 31.7
[~2023-02-12 09:51] MED LIST: LACTATED RINGERS 1,000 ML IV SCH
[2023-02-12 10:40] VITALS: TEMP 97.3
[2023-02-12] MEDS ORDERED: PROPOFOL 10 MG/ML 20 ML VIAL IV ONE (11:00)
--- NOTE | 2023-02-12 11:18 | P.PCN ---
Date of Procedure: 02/12/23 Procedure(s) Performed: Preoperative Dx: Dysphagia Postoperative Dx: Hiatal hernia, distal esophagitis, short segment Lee's esophagus, mild gastritis Procedure: EGD with Bx Anesthesia: Sedation Endoscopist: Dr. Okeefe Specimens: Antrum, esophagus Endoscopic Procedure: The patient was on the endoscopy table in the left decubitus position. The Olympus gastroscope was inserted into the oropharynx and passed under direct visualization to the region of the third portion of the duodenum. From that point the scope was slowly withdrawn inspecting all surfaces carefully. There were no neoplastic inflammatory or polypoid lesions throughout the duodenum. The pylorus was widely patent. The stomach was carefully inspected. There was mild gastritis present. A biopsy of the antrum took place to rule out H. pylori. Retroflexion revealed a fixed hiatal hernia. The GE junction was present at 38 cm and the hiatus at 42 cm. The portion of stomach above the diaphragm was free of inflammatory changes. At the GE junction and proximal by 2 cm was inflammatory changes. This was not circumferential. There were Lee's changes as well. Biopsies were taken. Were a few scattered single linear areas of esophagitis that went even more proximal to that. The proximal esophagus was mildly tortuous but was otherwise normal. There was no evidence of stricture formation. The patient was then taken to the recovery room in stable condition per anesthesia guidelines. Recommendations: Await biopsy results. Resume diet. Continue antiacids.
[2023-02-12 11:24] VITALS: RESP 16
[2023-02-12 11:44] VITALS: BP 119/69; PULSE 59
== END 2023-02-12 12:06 | disposition home or self-care (01) ==
LOC: ORWHC2ENDO 09:51
PROVIDERS: ATTEND Surgery
DX: K29.50 Unspecified chronic gastritis without bleeding (principal); K44.9 Diaphragmatic hernia without obstruction or gangrene; I10 Essential (primary) hypertension; I25.10 Atherosclerotic heart disease of native coronary artery without angina pectoris; E78.5 Hyperlipidemia, unspecified; J44.9 Chronic obstructive pulmonary disease, unspecified; E03.9 Hypothyroidism, unspecified; K21.00 Gastro-esophageal reflux disease with esophagitis, without bleeding; F41.9 Anxiety disorder, unspecified; Z88.8 Allergy status to other drugs, medicaments and biological substances; Z88.0 Allergy status to penicillin; Z88.2 Allergy status to sulfonamides; Z88.1 Allergy status to other antibiotic agents; Z79.890 Hormone replacement therapy; Z79.899 Other long term (current) drug therapy; Z79.51 Long term (current) use of inhaled steroids; Z90.49 Acquired absence of other specified parts of digestive tract; Z98.890 Other specified postprocedural states
CPT/HCPCS: 88305; 43239; J2704

== ENCOUNTER → 2023-03-29 | Outpatient (CLI) | payer MEDICARE, OTHER ==
--- NOTE | 2023-03-29 12:01 | BD ---
EXAMINATION TYPE: Axial Bone Density DATE OF EXAM: 03/29/2023 CLINICAL HISTORY: 72 years old Female. ICD-10 CODE: N95.1 MENOPAUSAL AND FEMALE CLIMACTERIC STATES Height: 61.2 Weight: 153.2 FRAX RISK QUESTIONS: Alcohol (3 or more units per day): no Family History (Parent hip fracture): no Glucocorticoids (More than 3mos): no History of Fracture in Adulthood: no Secondary Osteoporosis: 1. Type 1 Diabetes: no 2. Hyperthyroidism: no 3. Menopause before 45: yes 4. Malnutrition: no 5. Chronic liver disease: no Rheumatoid Arthritis: no Current Tobacco Use: no RISK FACTORS HISTORY OF: Hip Fracture (Right/Left): no Spine Fracture: no History of Wrist Fracture: no Surgery to Spine/Hip(right/left)/Wrist (right/left): Bilateral hip replacements 2017 and 2018, Lumbar fusion L3-5 with hardware 2012 Family History of Osteoporosis: no Active: no Diet low in dairy products/other sources of calcium: no Postmenopausal woman: yes Take estrogen and/or progesterone medications: no Lost more than 2 inches in height since high school: yes Frequent falls: no Poor Health: no Hyperparathyroidism: no Adrenal Insufficiency: no MEDICATIONS: Prednisone or other steroids: no Thyroid Medications: Synthroid How Long: past 20 years Osteoporosis Medications: no Additional Medications: Potasium, Synthroid, Celexa, Levostatin, Zofran, xanax, Albuterol inhaler, Vi t D Zinc, Additional History: EXAM MEASUREMENTS: Bone mineral density about the L Wrist (g/cm2): 0.602 T Score values are as follows: -----Dist. R+U: -0.9 -----Prox. R+U: -1.1 -----Radius total: -1.2 Z Score values are as follows: -----Dist. R+U: 1.1 -----Prox. R+U: 0.9 -----Radius total: 0.8 Baseline Study FRAX%s: The graph provided illustrates a % chance for a major osteoporotic fx and a % chance for the hips probability for fx in 10 years time. Bilateral hip replacement so hips were not included in this exam. IMPRESSION: Osteopenia (T Score between -2.5 and -1). There is slightly increased risk of fracture and the patient may be considered for treatment. Re-Screen 2-5 years. NOTE: T-SCORE=SD OF THE YOUNG ADULT MEAN.
== END | disposition home or self-care (01) ==
LOC: RADBDWWP 11:17
PROVIDERS: ATTEND Internal Medicine
DX: M85.89 Other specified disorders of bone density and structure, multiple sites (principal); Z78.0 Asymptomatic menopausal state; Z96.643 Presence of artificial hip joint, bilateral
CPT/HCPCS: 77080

== ENCOUNTER → 2023-04-09 | Outpatient (CLI) | payer MEDICARE, OTHER ==
--- NOTE | 2023-04-09 13:09 | CT ---
EXAMINATION TYPE: CT chest wo con CT DLP: 494 mGycm, Automated exposure control for dose reduction was used. DATE OF EXAM: 04/09/2023 11:45 AM COMPARISON: 11/08/2022 CLINICAL INDICATION:Female, 72 years old with history of R91, f/u nodules TECHNIQUE: Multiple axial images were obtained through the chest. Sagittal and coronal reformats were created for review. Contrast used: none. Oral contrast used: none. FINDINGS: LUNGS/ PLEURA: Mild centrilobular emphysema changes right upper lung posterior opacities which are so mewhat groundglass are new from prior. Increased interstitial prominence most pronounced in the middl e lobe. There is a right lower lobe pulmonary nodules are stable from prior measuring up to 4 mm AIRWAY: Patent and unremarkable. HEART: Size within normal limits. MEDIASTINUM: No gross evidence of adenopathy. Moderate hiatal hernia VASCULATURE: No aortic aneurysm. MUSCULOSKELETAL: No acute osseous abnormalities SOFT TISSUES/LYMPH NODES: Unremarkable. LOWER NECK: No significant findings. UPPER ABDOMEN: Extra hepatic biliary dilation is similar prior. Similar left hyperdense renal cyst me asuring up to 8 mm and 51 Hounsfield units. IMPRESSION: 1. Stable right lower lobe 4 mm pulmonary nodule. Consider low dose lung cancer screening yearly. 2. Right upper lobe posterior parenchymal scarring/airspace opacities. Correlate for infectious/infl ammatory process. 3. Mild emphysema changes. 4. Hyperdense left renal cyst which is indeterminate. Consider CT or MRI renal mass protocol for com plete characterization. 5. Moderate hiatal hernia.
== END | disposition home or self-care (01) ==
LOC: RADCTMAIN 11:25
PROVIDERS: ATTEND Internal Medicine Critical Care Medicine
DX: J43.2 Centrilobular emphysema (principal); K44.9 Diaphragmatic hernia without obstruction or gangrene; N28.1 Cyst of kidney, acquired; R91.1 Solitary pulmonary nodule
CPT/HCPCS: 71250

== ENCOUNTER → 2023-04-09 | Outpatient (CLI) | payer MEDICARE, OTHER ==
[2023-04-09 15:27] LABS: African American GFR (CKD) 56.2 (60.0-200.0); Albumin/Globulin Ratio 1.51 (1.60-3.17); Anion Gap 10.5 mmol/L (10.00-18.00); BUN/Creat Ratio 24.87 Ratio (12.00-20.00); Blood Urea Nitrogen 28.1 mg/dL (9.0-27.0); Calcium 10.1 mg/dL (8.7-10.3); Carbon Dioxide 25.8 mmol/L (20.0-27.5); Globulin 2.7 g/dL (1.6-3.3); Non-African American GFR(CKD) 48.5 (60.0-200.0); Potassium 3.9 mmol/L (3.5-5.5); Total Bilirubin 0.2 mg/dL (0.30-1.20); Total Protein 6.7 g/dL (6.2-8.2)
== END | disposition home or self-care (01) ==
LOC: LABWHC1 11:47
PROVIDERS: ATTEND Internal Medicine Nephrology
DX: N18.31 Chronic kidney disease, stage 3a (principal)
CPT/HCPCS: 36415; 80053

== ENCOUNTER → 2023-04-22 | Outpatient (CLI) | payer MEDICARE | END | disposition home or self-care (01) | LOC: LABWHC1 11:31 | PROVIDERS: ATTEND Internal Medicine Endocrinology, Diabetes & Metabolism | DX: E03.8 Other specified hypothyroidism (principal) | CPT/HCPCS: 36415; 84443 ==

== ENCOUNTER 2023-04-30 19:21 | Outpatient (CLI) | payer MEDICARE ==
--- NOTE | 2023-05-14 16:57 | P.PCN ---
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 She has issues with chronic pain and she had severe sleep fragmentation related to obstructive sleep apnea and her comorbid conditions. Her AHI was as high as 66. Her sleep was severely fragmented. She was offered CPAP therapy. Initial machine that she was given turnout to be ineffective machine and she was just given a new machine. I checked the machine and this is a ResMed 11, APAP machine pressures of 5/15 cm of water. I checked the compliance and her old machine and the numbers were obviously off. She stated that she was using the machine however the machine recorded only 1 hours and 26 minutes of CPAP use per night and treatment was not successful as the patient was having significant number of obstructive respiratory events even while on treatment and her AHI was at 37.3. I did not think those numbers were reliable and I gave this patient a chance with a new machine. She is having a lot of reflux symptoms throughout the night where she feels food is building up all the way up to her throat and mouth. She is known to have COPD, hiatal hernia, chronic pain and hypothyroidism and history of depression. I saw the patient in a FU on 02/22/23. She was trying her best to become more compliant and continue using her CPAP unit. She was trying to understand her machine better and she was trying to put in more hours. She was achieving a 3.5 hours of CPAP use. She did have significant residual obstructive respiratory events. However, this is the best that she is done for quite some time. She has not met insurance tenderness for compliancy. She was using the air touch nasal mask. Based on that, it evaluation with a non-the polysomnography was done. Pertinent physical findings Patient's height is 5 feet and 3 inches, weight is 159 pounds in a body mass index is 28.2 Technical description The patient was studied using a standard complex polysomnography protocol that included recording of the 2 EKG, Central, occipital and frontal EEG, right and left outer canthus EOG, submental EMG, right and left anterior tibialis EMG, respiratory airflow by thermocouple and or pressure/flow transducer, respiratory efforts by abdominal and thoracic PVDF belts, oxygen saturation by cable oximetry. Position by observation synchronized the PSG. 4 children 12 and under and selected patients, ETCO2 may be added to the recording. Equipment used: [employer]. Sleep architecture The study began at 2215 and it ended at 458. The total recording time was 403 minutes. The patient had a total sleep time of 350.5 minutes with a 41 minutes of wake after sleep onset. The patient had a sleep efficiency of 87%. The patient's sleep latency was 10 minutes. The sleep architecture was catheterized by 4.7% stage I, 75.5% stage II, 6% stage III and 13.8% REM sleep. The REM sleep latency was 306.5 minutes Respiratory analysis The sleep study demonstrated total of 2 obstructive apneas, 0 mixed apneas, 169 obstructive hypopneas and there were 5 central apneas noted. The resulting apnea hypopnea index was 28.2 consistent with moderate severe obstructive sleep apnea. The patient also encountered nocturnal oxygen desaturations. Oxygenation analysis The patient had nocturnal oxygen desaturation with the patient spent approximately 18.7% of sleep time at a pulse ox of 88% and below and this lasted for a total of 75.3 minutes. The minimum pulse ox recorded was 80% and the mean pulse ox was 89% Periodic limb movement summary The patient had a total of 8 periodic limb movements with an index of 1.4 Cardiac summary Average heart rate was 58, minimum heart rate is 55 and a maximum of his was 61. Sleep continuity summary The patient has an arousal index of 0.3. Assessment Obstructive sleep apnea, moderate in severity with an AHI of 28. The patient has encountered difficulties in achieving compliancy based on APAP therapy that she was offered in the past. Please refer to the above-mentioned information Chronic hypersomnia DVT, history of COPD, history of Acid reflux Depression Hypothyroidism Chronic pain Hiatal hernia Plan We'll discuss findings with the patient I think is reasonable for this patient underwent in lab CPAP titration to accurately identify the CPAP pressure that the patient needs to use and stated that with appropriate mask interface and proceed with treatment accordingly. She has not been able to achieve compliancy based on previous APAP treatment. Obviously, if unable to tolerate CPAP therapy, she is going to be considered for hypoglossal nerve stimulation/Inspire treatment. Encourage weight loss We'll continue to follow
== END 2023-05-01 23:59 ==
LOC: 3 N SLEEP 19:21
PROVIDERS: ATTEND Internal Medicine Critical Care Medicine
DX: G47.33 Obstructive sleep apnea (adult) (pediatric) (principal); Z91.041 Radiographic dye allergy status; Z88.1 Allergy status to other antibiotic agents; Z88.5 Allergy status to narcotic agent; Z88.2 Allergy status to sulfonamides; Z88.8 Allergy status to other drugs, medicaments and biological substances; Z87.891 Personal history of nicotine dependence
CPT/HCPCS: 95810

== ENCOUNTER → 2023-05-27 | Outpatient (CLI) | payer MEDICARE ==
--- NOTE | 2023-05-30 11:42 | MM ---
Reason for Exam: Screening (asymptomatic). Last mammogram was performed 1 year(s) and 1 month(s) ago. Patient History: Menarche at age 11. Patient has no children. Left ovary removed at age 25. Right ovary removed at age 25. Hysterectomy at age 25. Postmenopausal. Estrogen, starting at age 26 for 31 years. Risk Values: Ruth 5 year model risk: 2.1%. NCI Lifetime model risk: 5.6%. Prior Study Comparison: 12/15/2019 Bilateral Screening Mammogram, [facility]. 03/17/2021 Bilateral Screening Mammogram, [facility]. 05/04/2022 Bilateral MG 3D screening mammo w/cad, [facility]. Tissue Density: There are scattered fibroglandular densities. Findings: Analyzed By CAD. There is no suspicious group of microcalcifications or new suspicious mass in either breast. Overall Assessment: Negative, BI-RAD 1 Management: Screening Mammogram of both breasts in [address] [facility] will attempt to contact patient to return for supplemental views and ultrasound if indicated. Patient should continue monthly self-breast exams. A clinical breast exam by your physician is recommended on an annual basis. This exam should not preclude additional follow-up of suspicious palpable abnormalities. Note on Ruth scores and lifetime risk: 1. A Ruth score greater than 3% is considered moderate risk. If this is the case, consider specialist referral to assess eligibility for a risk reducing agent. 2. If overall lifetime risk for the development of breast cancer is 20% or higher, the patient may qualify for future screening with alternating mammogram and breast MRI. Electronically signed and approved by: Titi Burt DO
== END | disposition home or self-care (01) ==
LOC: RADMAMWWP 11:17
PROVIDERS: ATTEND Internal Medicine
DX: Z12.31 Encounter for screening mammogram for malignant neoplasm of breast (principal); Z78.0 Asymptomatic menopausal state
CPT/HCPCS: 77063; 77067

== ENCOUNTER → 2023-05-27 | Outpatient (CLI) | payer MEDICARE ==
--- NOTE | 2023-05-27 13:06 | CT ---
EXAMINATION TYPE: CT abdomen wo con CT DLP: 353.2 mGycm, Automated exposure control for dose reduction was used. DATE OF EXAM: 05/27/2023 12:47 PM COMPARISON: 04/09/2023 CLINICAL INDICATION:Female, 72 years old with history of N28.1; cyst of left kidney f/u TECHNIQUE: Axial CT of the abdomen. Sagittal and coronal [facility] Contrast used: mL of , (none if empty) Oral contrast used: without Oral Contrast (none if empty) FINDINGS: LOWER CHEST: Unremarkable ABDOMEN LIVER: Unremarkable GALLBLADDER AND BILE DUCTS: The gallbladder is not visualized and may be surgically absent. PANCREAS: Unremarkable. SPLEEN: Unremarkable. ADRENAL GLANDS: Unremarkable. KIDNEYS AND URETERS: Persistent indeterminate left renal cyst measuring 7 mm when measuring similarly . This is not significantly changed from 04/09/2023 No evidence of hydronephrosis or renal calculus. T he ureters are unremarkable. STOMACH AND BOWEL: Moderate hiatal hernia. Large stool burden throughout the colon. No evidence of sukumar wel obstruction. PERITONEUM/RETROPERITONEUM: No evidence of pneumoperitoneum or free fluid. VASCULATURE: No evidence of aortic aneurysm. MUSCULOSKELETAL: No acute osseous abnormalities, partially visualized fixation hardware in the left h ip. Fixation hardware in the spine appears intact. Multilevel degeneration changes of the spine are p resent. LYMPH NODES: No gross evidence for lymphadenopathy. SOFT TISSUE/ABDOMINAL WALL: Electronic device in the anterior abdomen. Anterior abdominal wall surgic al chava. IMPRESSION: 1. Stable indeterminate left renal hyperdense lesion. 2. Large stool burden throughout the colon. 3. Moderate hiatal hernia.
== END | disposition home or self-care (01) ==
LOC: RADCTMAIN 12:27
PROVIDERS: ATTEND Internal Medicine Nephrology
DX: N28.1 Cyst of kidney, acquired (principal); K44.9 Diaphragmatic hernia without obstruction or gangrene
CPT/HCPCS: 74150

== ENCOUNTER → 2023-12-16 | Outpatient (CLI) | payer MEDICARE ==
--- NOTE | 2023-12-16 14:17 | MR ---
EXAMINATION TYPE: MR cervical spine wo con DATE OF EXAM: 12/16/2023 COMPARISON: 07/30/2023 HISTORY: 72-year-old female M54.2, Headache, numbness from left ear to chin. Hx surgery. TECHNIQUE: Multiplanar, multisequence images of the cervical spine were acquired without contrast. FINDINGS: No craniocervical junction abnormally, predental space widening, or prevertebral soft tissue swelling . Postsurgical change of C4-C5 and C6-C7 ACDF. There appears to be interbody ankylosis across C5-C6 as well. Mild to moderate degenerative disc disease both above and below the fusion with disc desiccation and disc bulging. Grade 1 anterolisthesis above the fusion at C3-C4 is slightly more pronounced. Similar grade 1 anterolisthesis T2-T3. Heterogeneous marrow signal suggesting red marrow hyperplasia. No suspicious bone marrow replacement. Posterior disc osteophyte complexes and significant ligamentum flavum thickening contributes to mild overall spinal canal stenosis at C3-C4 with abutment of the ventral cord, similar to prior exam. Additional disc osteophyte complexes impressing onto the ventral thecal sac but without significant s kelly canal stenosis Scattered facet and uncovertebral joint arthropathy. At C2-C3, changes result in mild left neuroforaminal stenosis. At C3-C4, there is [id number]-rrephyjy left neuroforaminal stenosis. At C4-C5, moderate right and mild left neuroforaminal stenosis. At C5-C6, mild left neuroforaminal stenosis. At C6/C7, mild to moderate bilateral neural foraminal stenosis. At C7-T1, mild to moderate left and mild right neural foraminal stenosis. At T1-T2, mild right neuroforaminal stenosis. No T2-weighted cord signal abnormality. IMPRESSION: 1. Status post C4-C7 ACDF. Relatively similar exam. Dmcr-mm-redynkyh degenerative disc disease throug hout the cervical and upper thoracic spine. 2. Scattered facet and uncovertebral joint arthropathy. Similar degenerative grade 1 anterolisthesis C3-C4 and T2-T3. 3. Mild overall spinal canal stenosis at C3-C4 with abutment of the ventral cord. No cord compression is seen. 4. Variable mild and moderate neuroforaminal stenoses as outlined above.
== END | disposition home or self-care (01) ==
LOC: RADMRIMAIN 09:32
PROVIDERS: ATTEND Internal Medicine
DX: M48.02 Spinal stenosis, cervical region (principal); M43.12 Spondylolisthesis, cervical region; M43.14 Spondylolisthesis, thoracic region; M99.71 Connective tissue and disc stenosis of intervertebral foramina of cervical region; M47.812 Spondylosis without myelopathy or radiculopathy, cervical region; M50.30 Other cervical disc degeneration, unspecified cervical region; E87.6 Hypokalemia; Z98.890 Other specified postprocedural states
CPT/HCPCS: 36415; 72141; 84132

== ENCOUNTER → 2024-01-30 | Day surgery (SDC) | payer MEDICARE ==
[~2024-01-30] MED LIST changes: +HYDROmorphone 0.5 MG/0.5 ML SYRINGE IVP PRN; +LIDOCAINE 1% (10MG/ML) FOR IV START INTRADERMA PRN; +LIDOCAINE 1% INJ 10MG/ML (20 ML MDV) ONE; +MIDAZOLAM 2 MG/2 ML VIAL IV PRN; +PROPOFOL 10 MG/ML 20 ML VIAL IV ONE
[2024-01-30] MEDS: ONDANSETRON 4 MG/2 ML VIAL IVP ONE (12:53)
[2024-01-30] MEDS: LACTATED RINGERS 1,000 ML IV SCH (12:53)
[2024-01-30] MEDS: DEXAMETHASONE SOD PHOSPHATE 4 MG/ML 1 ML VIAL IV ONE (12:53)
[2024-01-30] MEDS: ATROPINE SULFATE 0.4 MG/ML 1 ML VIAL IM ONE (12:53)
[2024-01-30 12:55] VITALS: TEMP 97.4
[2024-01-30 13:21] LABS: Basophils % (A) 1 %; Eosinophils # (A) 0.2 k/uL (0-0.7); Eosinophils % (A) 4 %; HCT 39.1 % (34.0-46.0); HGB 12.6 gm/dL (11.4-16.0); Lymphocytes # (A) 0.8 k/uL (1.0-4.8); Lymphocytes % (A) 15 %; MCH 30.9 pg (25.0-35.0); MCHC 32.3 g/dL (31.0-37.0); MCV 95.7 fL (80.0-100.0); Mean Platelet Volume 7.3; Monocytes # (A) 0.4 k/uL (0-1.0); Monocytes % (A) 7 %; Neutrophils # (A) 3.8 k/uL (1.3-7.7); Neutrophils % (A) 72 %; Platelet Count 294 k/uL (150-450); RBC 4.09 m/uL (3.80-5.40); WBC 5.4 k/uL (3.8-10.6)
[2024-01-30 13:25] LABS: ALT 22 U/L (4-34); AST 27 U/L (14-36); African American GFR (CKD) 54 (>60 ml/min/1.73 sqM); Albumin 3.9 g/dL (3.5-5.0); Alkaline Phosphatase 78 U/L (38-126); Anion Gap 8 mmol/L; Blood Urea Nitrogen 21 mg/dL (7-17); Calcium 9.6 mg/dL (8.4-10.2); Carbon Dioxide 24 mmol/L (22-30); Chloride 107 mmol/L (98-107); Glucose 79 mg/dL (74-99); Non-African American GFR(CKD) 47 (>60 ml/min/1.73 sqM); Potassium 4.8 mmol/L (3.5-5.1); Sodium 139 mmol/L (137-145); Total Bilirubin 0.4 mg/dL (0.2-1.3); Total Protein 6.9 g/dL (6.3-8.2)
--- NOTE | 2024-01-30 13:58 | PCN ---
PROCEDURE NOTE PULMONARY/CRITICAL CARE PROCEDURE NOTE: PROCEDURES PERFORMED: Bronchoscopy; airway examination; therapeutic lavage; BAL, right middle lobe. PREOPERATIVE DIAGNOSES: Chronic obstructive pulmonary disease, retained secretions, purulent tracheobronchitis, pneumonia. POSTOPERATIVE DIAGNOSES: Chronic obstructive pulmonary disease, retained secretions, purulent tracheobronchitis, pneumonia. V BELT INSPECTOR: Dr. Melvin. FIRST REPAIR TABLE OPERATOR: Dr. Socorro Merida. There was informed consent and universal timeout. The patient's procedure took place in [facility], room #2. ANESTHESIA PROVIDED: General anesthesia. DESCRIPTION OF PROCEDURE: After the patient was adequately sedated and being fully monitored, the bronchoscope was inserted through the right nostril. It passed through the right nasopharynx into the oropharynx. The hypopharynx was identified. The hypopharyngeal structures, including anterior commissure, true cords, false cords, arytenoids, piriform sinuses, right and left, and vallecular, all appeared normal. The glottic opening was hospitalized. The bronchoscope was pushed through the glottic opening into the trachea. The trachea appeared normal. Tracheal ambika was sharp. The right upper lobe and its 3 segments, right middle lobe and its 2 segments, right lower lobe and its 5 segments, left upper lobe proper and its 2 segments, lingula and its 2 segments, the left lower lobe and its 4 segments, all had similar findings of mild bronchitis throughout. There were some secretions noted in the lower lobes. They were suctioned without difficulty. There was no dominant mass or tumor. There was minimal mucosal friability. The bronchoscope was then wedged into the right middle lobe. A formal BAL was done. 30 mL of turbid fluid was recovered and sent to the laboratory for analysis. There was no immediate complication. Additional secretions were suctioned and the bronchoscope was withdrawn. The patient will be recovered. MMODL / IJN: [id number] /
[2024-01-30 14:03] VITALS: BP 132/85; PULSE 87; RESP 20
[2024-01-30 18:27] LABS: Appearance,BF Cloudy (Clear)
[2024-01-30 19:15] LABS: Chol/HDL Ratio 2.98 Ratio; LDL Cholesterol,Calculated 105.3 mg/dL (0.0-131.0)
== END ==
LOC: ORWHC2ENDO 11:58
PROVIDERS: ATTEND Internal Medicine Critical Care Medicine
DX: J44.9 Chronic obstructive pulmonary disease, unspecified (principal); I20.9 Angina pectoris, unspecified; U07.1 COVID-19; I82.409 Acute embolism and thrombosis of unspecified deep veins of unspecified lower extremity; F32.9 Major depressive disorder, single episode, unspecified; K21.9 Gastro-esophageal reflux disease without esophagitis; G47.10 Hypersomnia, unspecified; E03.9 Hypothyroidism, unspecified; M19.90 Unspecified osteoarthritis, unspecified site; Z79.899 Other long term (current) drug therapy; Z98.890 Other specified postprocedural states; Z79.890 Hormone replacement therapy
CPT/HCPCS: 87798 ×3; 87496; 87498; 87529; 88305; 80061; 80053; 84443; 89050; 85025; 87502; 87634; 82306; 87070; 87205; 87116; 87102; 87206; 87635; 31624; J0461; J1100; J2405; J2001; J2704

== ENCOUNTER → 2024-03-16 | Outpatient (CLI) | payer MEDICARE ==
--- NOTE | 2024-03-16 11:33 | US ---
EXAMINATION TYPE: US kidneys/renal and bladder DATE OF EXAM: 03/16/2024 COMPARISON: CT 05/27/2023 CLINICAL INDICATION: Female, 73 years old with history of N28.1 CYST OF KIDNEY, ACQUIRED; Hx of cyst. EXAM MEASUREMENTS: Right Kidney: 9.2 x 5.7 x 4.9 cm Left Kidney: 9.0 x 4.4 x 4.7 cm Right Kidney: *Hydronephrosis was seen Left Kidney: Anechoic area seen upper pole: 2.2 x 1.5 x 1.4 cm. Bladder: Limited evaluation due to bowel causing artifact. Bilateral Jets seen: Yes IMPRESSION: 1. Mild dilation of the collecting system correlate for hydronephrosis. No obstructing calculi visua lized. 2. Left renal cyst.
== END | disposition home or self-care (01) ==
LOC: RADUSWWP 09:49
PROVIDERS: ATTEND Urology
DX: N28.1 Cyst of kidney, acquired (principal); N13.30 Unspecified hydronephrosis
CPT/HCPCS: 76770

== ENCOUNTER → 2024-06-03 | Outpatient (CLI) | payer MEDICARE ==
--- NOTE | 2024-06-07 13:27 | MM ---
Reason for Exam: Screening (asymptomatic). Last screening mammogram was performed 12 month(s) ago. Patient History: Menarche at age 11. Patient has no children. Left ovary removed at age 25. Right ovary removed at age 25. Hysterectomy at age 25. Postmenopausal. Estrogen, starting at age 26 for 31 years. Risk Values: Ruth 5 year model risk: 2.2%. NCI Lifetime model risk: 5.3%. Prior Study Comparison: 03/17/2021 Bilateral Screening Mammogram, [facility]. 05/04/2022 Bilateral MG 3D screening mammo w/cad, [facility]. 05/27/2023 Bilateral MG 3D screening mammo w/cad, [facility]. Tissue Density: There are scattered areas of fibroglandular density. Findings: Analyzed By CAD. The pattern is symmetrical. Vascular calcification is present. Within the anterior right breast and may be some developing punctate calcifications. Additional evaluation magnification views is recommended. Left breast:No suspicious groups of microcalcifications, spiculated or lobular masses, architectural distortion or other secondary signs of malignancy are mammographically apparent. Overall Assessment: Incomplete: need additional imaging evaluation, BI-RAD 0 Management: Diagnostic Mammogram of the right breast. A negative mammogram report should not preclude additional follow up of suspicious palpable abnormalities. Patient should continue monthly self breast exam. A clinical breast exam by your physician is recommended on an annual basis and results should be correlated with mammographic findings. Note on Ruth scores and lifetime risk: 1. A Ruth score greater than 3% is considered moderate risk. If this is the case, consider specialist referral to assess eligibility for a risk reducing agent. 2. If overall lifetime risk for the development of breast cancer is 20% or higher, the patient may qualify for future screening with alternating mammogram and breast MRI. Electronically signed and approved by: Pa Magdaleno D.O. Radiologis
== END | disposition home or self-care (01) ==
LOC: RADMAMWWP 10:27
PROVIDERS: ATTEND Internal Medicine
DX: Z12.31 Encounter for screening mammogram for malignant neoplasm of breast (principal); R92.323 Mammographic fibroglandular density, bilateral breasts; Z78.0 Asymptomatic menopausal state
CPT/HCPCS: 77063; 77067

== ENCOUNTER → 2024-07-28 | Outpatient (CLI) | payer MEDICARE ==
--- NOTE | 2024-07-28 10:14 | MM ---
Reason for Exam: Additional evaluation requested from abnormal screening. Last screening mammogram was performed 2 month(s) ago. Patient History: Menarche at age 11. Patient has no children. Left ovary removed at age 25. Right ovary removed at age 25. Hysterectomy at age 25. Postmenopausal. Estrogen, starting at age 26 for 31 years. Risk Values: Ruth 5 year model risk: 2.2%. NCI Lifetime model risk: 5.3%. Tissue Density: Right: The breasts are heterogeneously dense, which may obscure small masses. Findings: Analyzed By CAD. No suspicious microcalcifications present. Overall Assessment: Benign, BI-RAD 2 Management: Screening Mammogram of both breasts in 1 year. . Results were given to the patient verbally at the time of exam. Patient should continue monthly self-breast exams. A clinical breast exam by your physician is recommended on an annual basis. This exam should not preclude additional follow-up of suspicious palpable abnormalities. Note on Ruth scores and lifetime risk: 1. A Ruth score greater than 3% is considered moderate risk. If this is the case, consider specialist referral to assess eligibility for a risk reducing agent. 2. If overall lifetime risk for the development of breast cancer is 20% or higher, the patient may qualify for future screening with alternating mammogram and breast MRI. Electronically signed and approved by: Mayur Higgins M.D. Radiologis
== END | disposition home or self-care (01) ==
LOC: RADMAMWWP 09:45
PROVIDERS: ATTEND Internal Medicine
DX: R92.8 Other abnormal and inconclusive findings on diagnostic imaging of breast
CPT/HCPCS: 77061; 77065

== ENCOUNTER → 2024-07-28 | Outpatient (CLI) | payer MEDICARE ==
--- NOTE | 2024-07-28 11:11 | CTL ---
EXAMINATION TYPE: CT Low Dose Lung DATE OF EXAM ORDERED: 07/28/2024 HISTORY: History of pulmonary nodules, former smoker for 25 years, nicotine dependence 25 pack-year h istory. Lung cancer screening CT DLP: 83.[address] CTDI: 2.5 mGy Automated exposure control for dose reduction was used. SCREENING VISIT: First screening visit COMPARISON: CT chest 04/06/2023, 11/08/2022 TECHNIQUE: Low dose computed tomography scan was performed through the chest at 1 mm thick sections a nd reconstructed images in multiple planes at 1 mm and [address] DIAGNOSTIC QUALITY: Satisfactory FINDINGS: Nodules: Right lower lobe 4.4 mm cephalic pulmonary nodule (series 6, image 40). New right lower lobe peripheral 2.5 mm solid pulmonary nodule (series 6, image 42). New right lower lobe 3.1 mm solid pulmonary nodule (series 6, image 37). LUNGS: COPD: Severity: Mild Fibrosis: Severity: None Lymph nodes: None Other findings: Similar right lower lobe linear scarring. RIGHT PLEURAL SPACE: Effusion: None Calcification: None Thickening: Metallic device from right anterior chest wall power pack projects along the right anteri or upper lobe pleura. Pneumothorax: None LEFT PLEURAL SPACE: Effusion: None Calcification: None Thickening: None Pneumothorax: None HEART: Heart Size: Normal Coronary Calcification: None Pericardial Effusion: None OTHER FINDINGS: Upper abdomen: Moderate size hiatal hernia redemonstrated. Bony thorax: No acute thoracic process. Partial visualization of cervical fusion hardware and spinal stimulator leads. Supraclavicular region: None Other: Right anterior chest wall power pack with lead coursing superiorly into the anterior neck soft tissues. IMPRESSION: 1. Stable right lower lobe 4.4 mm nodule with 2 additional right lower lobe new pulmonary nodules dominique suring up to 3.1 mm. 2. Moderate-sized lateral hernia. CT LUNG RAD AND CT CHEST RECOMMENDATION: Lung-Rad 2 Benign Appearance or Behavior: Continue annual sc reening with LDCT in 12 months. S Modifier (other clinically significant findings): None
== END | disposition home or self-care (01) ==
LOC: RADCTMAIN 10:20
PROVIDERS: ATTEND Internal Medicine Critical Care Medicine
DX: Z12.2 Encounter for screening for malignant neoplasm of respiratory organs (principal); K44.9 Diaphragmatic hernia without obstruction or gangrene; R91.8 Other nonspecific abnormal finding of lung field; Z87.891 Personal history of nicotine dependence
CPT/HCPCS: 71271

== ENCOUNTER → 2025-04-21 | Outpatient (CLI) | payer MEDICARE ==
--- NOTE | 2025-04-26 21:23 | P.PCN ---
Date of Procedure: 04/21/25 Operative Findings: Home sleep study report History This is a 74-year-old female patient with history of severe obstructive sleep apnea with an AHI of 66 based on a sleep study that was done on 07/17/2022. The patient was unable to tolerate CPAP therapy and subsequently the patient underwent another polysomnography in May 2023 and an AHI came back at 28. Accordingly, the patient was given inspire treatment and the treatment has been effective and the patient has been feeling quite alert and awake during the day and she is able to tolerate the hypoglossal nerve stimulation therapy reasonably well. She is currently set up at a minimum of 1.2 V and a maximum of 2.2 V and her current voltage is at 2.1 (titration level 10). She underwent a successful titration on outpatient basis and she was stepped up by 0.1V/week to reach to the current titration and a home sleep study was ordered to assess adequacy of the treatment. Physical findings The weight is 157 pounds with a body mass index of 27.8 Technical description This is a type III home sleep study. The [employer] system was used to complete his home sleep study. Noted the study was done while the inspire was active at level 10 titration. The total recording duration was 7 hours and 6 minutes. The study started at 12:13 AM and ended at 7:19 AM. The patient had a total of 6 hours and 45 minutes of flow monitoring and 6 hours and 40 minutes of oxygen saturation monitoring. Results The respiratory analysis showed a total of 45 apneas and 11 hypopneas. The resulting AHI was 8.3. Oxygenation analysis The patient had a baseline pulse ox of 93% while awake. Average pulse ox during sleep was 91% with a minimum pulse ox of 86% and the patient spent approximately 4 minutes of the sleep time below pulse ox of 89% Cardiac summary Average heart rate was 61 with a minimum heart rate of 49 and a maximum heart of 83 Assessment Symptomatic obstructive sleep apnea with an AHI of 28 based on the most recent polysomnography that was done in May 2023. The patient failed CPAP therapy and the patient was given hypoglossal nerve stimulation via an inspire device. Her current treatment is successful and the patient is AHI is down to 8 while being on treatment with inspire. Clinically, the patient is feeling well without any significant hypersomnia or sleepiness and the patient is able to tolerate this level of hydration without any major difficulties. Plan Continue inspire therapy. The patient is set at a voltage range of 1.2-2.2 V and the patient is currently at the titration level of 10, i.e., receiving 2.1 V treatment. The patient is clinically asymptomatic and she has responded nicely and there is considerable drop in her AHI down to 8 from a baseline of 28. Will keep the same setting on the inspire device Continue with therapy Treatment is successful Will continue to follow
== END ==
LOC: 3 N SLEEP 11:01
PROVIDERS: ATTEND Internal Medicine Critical Care Medicine
DX: G47.33 Obstructive sleep apnea (adult) (pediatric) (principal); Z88.0 Allergy status to penicillin; Z88.1 Allergy status to other antibiotic agents; Z91.041 Radiographic dye allergy status; Z91.048 Other nonmedicinal substance allergy status; Z88.2 Allergy status to sulfonamides; Z88.5 Allergy status to narcotic agent; Z88.8 Allergy status to other drugs, medicaments and biological substances; Z91.040 Latex allergy status; Z87.891 Personal history of nicotine dependence